=== PATIENT | male | born 1950 | race Caucasian/White ===

== ENCOUNTER 2017-11-19 23:35 | Inpatient (IN) | payer MEDICARE ==
[~2017-11-19] VITALS: Ht 182.9 cm; Wt 93.7 kg
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
[2017-11-19 23:44] VITALS: BP 169/108
[2017-11-20 00:45] LABS: HEMATOCRIT 38.4 % (42.0-52.0); HEMOGLOBIN 12.2 g/dl (14.0-18.0); MEAN CORPUSCULAR HGB 31.1 pg (27.0-31.0); MEAN CORPUSCULAR HGB CONC 31.8 g/dl (33.0-37.0); MEAN PLATELET VOLUME 8.9 fl (9.6-12.3); PLATELET COUNT AUTOMATED 302 10*3/uL (130-400); RED BLOOD COUNT 3.92 10*6/uL (4.50-5.90); RED CELL DISTRI WIDTH 18.6 % (0-14.5); WHITE BLOOD COUNT 8.6 10*3/uL (4.8-10.8)
[2017-11-20 01:04] LABS: ALBUMIN 3.2 gm/dl (3.1-4.5); ALKALINE PHOSPHATASE 135 U/L (45-117); BUN 11 mg/dl (7-24); CHLORIDE 102 mmol/L (98-107); CREATININE 1.12 mg/dL (0.70-1.30); LIPASE 110 U/L (73-393); POTASSIUM 3.3 mmol/L (3.5-5.1); SGOT/AST 118 IU/L (3-35); SGPT/ALT 143 U/L (12-78); SODIUM 135 mmol/L (136-145); TOTAL PROTEIN 8.3 gm/dL (6.4-8.2)
[2017-11-20 01:05] LABS: ACT PARTIAL THROMBO TIME 69.4 SECONDS (20.8-31.5)
[2017-11-20 01:05] LABS: BILIRUBIN NEGATIVE (NEGATIVE); BLOOD 1+ (NEGATIVE); CLARITY CLEAR (CLEAR); COLOR YELLOW (YELLOW); GLUCOSE NEGATIVE (NEGATIVE); KETONE NEGATIVE (NEGATIVE); LEUKO ESTERASE NEGATIVE (NEGATIVE); NITRITE NEGATIVE (NEGATIVE); PH 6.5 (5.0-9.0); SPECIFIC GRAVITY <= 1.005 (1.005-1.030); UROBILINOGEN 0.2 E.U./dl (0.2-1.0)
[2017-11-20 01:07] LABS: ETHYL ALCOHOL < 3.0 mg/dl (<3); TROPONIN I 0.167 ng/ml (<0.045)
[2017-11-20 01:12] LABS: INTERNATIONAL NORM RATIO > 11.7 (2.0-3.5)
[2017-11-20 01:15] LABS: ATYPICAL LYMPHS 3 % (0-0); PLATELET SUFFICIENCY NORMAL (NORMAL); TOTAL CELLS COUNTED 100 #CELLS
[2017-11-20 01:15] LABS: URINE AMPHETAMINES < 1000 (1000ng/ml); URINE BARBITURATES < 200 (200ng/ml); URINE BENZODIAZEPINES < 200 (200ng/ml); URINE CANNABINOIDS (THC) < 50 (50ng/ml); URINE COCAINE < 300 (300ng/ml); URINE METHADONE < 300 (300ng/ml); URINE OPIATES < 300 (300ng/ml)
[2017-11-20 01:16] LABS: URINE PHENCYCLIDINE < 25 (25ng/ml)
[2017-11-20 01:21] LABS: WBC 0-2 wbc/hpf (0-5)
[2017-11-20 02:46] VITALS: BP 170/102
[2017-11-20 03:05] VITALS: BP 157/82
[2017-11-20] MEDS ORDERED: COUMADIN6 M2 PO (03:25)
[2017-11-20 04:07] LABS: ABG BASE EXCESS -2.8 mmol/L (-2.0-2.0); ABG HCO3 20.9 mmol/l (22-26); ARTERIAL BLOOD GAS PCO2 33.6 mmHg (35-45); ARTERIAL BLOOD GAS PH 7.407 (7.35-7.45); ARTERIAL BLOOD GAS PO2 81.1 mmHg (80-90)
[2017-11-20] MEDS ORDERED: LIPITOR20 MG PO (04:08)
[2017-11-20] MEDS ORDERED: LASIX20 MG PO (04:08)
[2017-11-20] MEDS ORDERED: ZESTRIL10 MG PO (04:09)
[2017-11-20] MEDS ORDERED: LOPRESSOR50 M1 PO (04:09)
[2017-11-20 06:47] LABS: HEMATOCRIT 35.9 % (42.0-52.0); HEMOGLOBIN 11.8 g/dl (14.0-18.0); MEAN CORPUSCULAR HGB 31.9 pg (27.0-31.0); MEAN CORPUSCULAR HGB CONC 32.9 g/dl (33.0-37.0); MEAN PLATELET VOLUME 8.8 fl (9.6-12.3); PLATELET COUNT AUTOMATED 312 10*3/uL (130-400); RED CELL DISTRI WIDTH 18.4 % (0-14.5); WHITE BLOOD COUNT 7.4 10*3/uL (4.8-10.8)
[2017-11-20 07:25] LABS: ALBUMIN 2.9 gm/dl (3.1-4.5); ALKALINE PHOSPHATASE 128 U/L (45-117); BUN 9 mg/dl (7-24); CHLORIDE 105 mmol/L (98-107); CHOLESTEROL 118 mg/dL (<200); CREATININE 0.99 mg/dL (0.70-1.30); FREE T4 1.16 ng/dl (0.76-1.46); HDL CHOLESTEROL 30 mg/dl (40-60); LDL CHOLESTEROL 73 mg/dL (9-159); PHOSPHOROUS 2.7 mg/dL (2.5-4.9); POTASSIUM 3.3 mmol/L (3.5-5.1); SGOT/AST 111 IU/L (3-35); SGPT/ALT 133 U/L (12-78); SODIUM 137 mmol/L (136-145); TOTAL PROTEIN 8.1 gm/dL (6.4-8.2); TRIGLYCERIDES 77 mg/dl (<150); VLDL CHOLESTEROL 15 mg/dL (6-40)
[2017-11-20 07:26] LABS: ATYPICAL LYMPHS 2 % (0-0); BASOPHILS 3 % (0-1); PLATELET SUFFICIENCY NORMAL (NORMAL); TOTAL CELLS COUNTED 100 #CELLS
[2017-11-20 07:28] LABS: BURR CELLS FEW
[2017-11-20 07:30] LABS: THYROID STIM HORMONE (HS) 0.799 uIU/ml (0.358-4.75)
[2017-11-20 08:00] VITALS: BP 125/72
[2017-11-20 08:12] LABS: INTERNATIONAL NORM RATIO 8.8 (2.0-3.5)
[2017-11-20 08:38] LABS: VITAMIN D, 25-HYDROXY 38.7 ng/mL (30-100)
[2017-11-20 10:21] LABS: ABG BASE EXCESS -0.9 mmol/L (-2.0-2.0); ABG O2 SATURATION 97.4 % (95-97); ARTERIAL BLOOD GAS PCO2 36.7 mmHg (35-45); ARTERIAL BLOOD GAS PH 7.411 (7.35-7.45); ARTERIAL BLOOD GAS PO2 96.7 mmHg (80-90)
[2017-11-20 12:00] VITALS: BP 164/92
[2017-11-20] MEDS ORDERED: DUONEB 3 MG/3 ML3 M1 NEB (13:05)
[2017-11-20] MEDS ORDERED: ATORVASTATIN CA80 M1 PO (13:05)
[2017-11-20] MEDS ORDERED: CEFTRIAXON1 GM/50 ML IV (13:05)
[2017-11-20] MEDS ORDERED: Azithromycin500 MG IV (13:05)
[2017-11-20 16:00] VITALS: BP 105/85
[2017-11-20 20:00] VITALS: BP 145/77
[2017-11-21 06:10] LABS: HEPATITIS B SURFACE AG Negative (Negative); HEPATITIS C VIRUS ANTIBODY 0.2 s/co (0.0-0.9)
== END 2017-11-20 20:53 | disposition short-term general hospital (02) | DRG 871 ==
LOC: ED 23:35 → EDHOLD 11-20 02:18 → ICCU 11-20 02:43
PROVIDERS: Emergency Medicine Emergency Medical Services; Internal Medicine; Internal Medicine Critical Care Medicine; Student in an Organized Health Care Education/Training Program
PROC: 5A09357 Assistance with Respiratory Ventilation, Less than 24 Consecutive Hours, Continuous Positive Airway Pressure (ICD-10-PCS; principal; 2017-11-20)
DX: A41.9 Sepsis, unspecified organism (principal); G93.41 Metabolic encephalopathy; I11.0 Hypertensive heart disease with heart failure; J18.1 Lobar pneumonia, unspecified organism; I42.9 Cardiomyopathy, unspecified; I50.42 Chronic combined systolic (congestive) and diastolic (congestive) heart failure; E87.1 Hypo-osmolality and hyponatremia; J43.9 Emphysema, unspecified; F17.200 Nicotine dependence, unspecified, uncomplicated; Z96.649 Presence of unspecified artificial hip joint; E78.5 Hyperlipidemia, unspecified; D72.810 Lymphocytopenia; D53.9 Nutritional anemia, unspecified; E87.6 Hypokalemia; R73.9 Hyperglycemia, unspecified; R74.0 Nonspecific elevation of levels of transaminase and lactic acid dehydrogenase [LDH]; E66.3 Overweight; R59.1 Generalized enlarged lymph nodes; R31.9 Hematuria, unspecified; Z95.2 Presence of prosthetic heart valve; Z82.3 Family history of stroke; Z88.0 Allergy status to penicillin; Z82.49 Family history of ischemic heart disease and other diseases of the circulatory system; Z81.8 Family history of other mental and behavioral disorders; Z79.01 Long term (current) use of anticoagulants; Z68.28 Body mass index [BMI] 28.0-28.9, adult

== ENCOUNTER 2018-10-05 18:07 | Inpatient (IN) | payer MEDICARE ==
[~2018-10-05] VITALS: Ht 188 cm; Wt 75.7 kg
--- NOTE | ~2018-10-05 | WRIGHTHP ---
[place], [place] PATIENT HISTORY AND PHYSICAL EXAM NAME: JOHNNIE LONG UNIT #: [id number] ROOM: [facility] DOCTOR: ILIANA ENRIQUEZ MD BIRTHDATE: [birth year] DOS: HISTORY OF PRESENT ILLNESS: A 68 years old, who is not known to me. He arrived at the hospital yesterday evening around 1843. He was seen by Dr. Keita, was admitted to the hospital after midnight. I was told the patient has involuntary movements. The patient apparently woke up yesterday and was quite confused as per the patient's sister who he lives with and he was therefore transported to the Emergency Room. In the ER, he was noted to be confused, but the ER physician did not notice any involuntary movements. As per the sister, he also has had some couple of emesis. He denied having any chest pains, palpitations. After being admitted to the ICU, he was noted to have involuntary movements, was given Ativan and fell asleep and the movement stopped. He woke up around 5:00 with similar problems. At that time, he was seen to have myoclonic jerks, dystonic movements of the extremities. The Emergency Room physician did come up and see him, again another dose of Ativan was given. The ER physician also thought that there is a possibility of seizure disorder and the patient was given IV Dilantin. By the time I saw him, initially he was in deep sleep, was difficult to arouse him. His pupils were pinpoint and sluggishly reacting. After a few minutes, he woke up and he appeared to be extremely uncomfortable and had a scared look in his face. He would not answer any questions, kept saying that he was "naked" and he had involuntary dystonic jerky movements of upper arms as well as neck and his upper body. He was unable to answer any questions appropriately. PAST MEDICAL HISTORY: 1. Significant for recent hospitalization at [facility] for pelvic fractures. He was admitted last month and was transferred to local senior living, where he underwent physical therapy and was discharged from the senior living 2 days ago to his sister. 2. Severe cardiomyopathy, ejection fraction 20% with a recent cardiac catheterization and stent placement in 07/2018. 3. Benign hypertension. 4. History of valvular heart disease, unknown whether it is mechanical. 5. Chronic obstructive pulmonary disease. 6. Heavy alcohol abuse, quit drinking for about 18 years ago and in May, he restarted. 7. History of tobacco abuse. 8. Mixed hyperlipidemia. MEDICATIONS: Atorvastatin 80 daily, baclofen 10 daily, Coreg 6.25 twice a day, Flexeril 10 t.i.d., Lasix 40 daily, isosorbide 30 daily, losartan 100 mg daily, omeprazole 20 daily, spironolactone 25 daily, tramadol 50 q.i.d., warfarin 6 mg alternating with 5 mg. SOCIAL HISTORY: Again, heavy smoking, alcohol abuse. He lives with his sister. 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 [place], [place] PATIENT HISTORY AND PHYSICAL EXAM NAME: JOHNNIE LONG UNIT #: [id number] ROOM: [facility] DOCTOR: ILIANA ENRIQUEZ MD BIRTHDATE: [birth year] VITAL SIGNS: Blood pressure is 115/81, pulse of 84, respirations 18, temperature 97.8. LUNGS: Diminished breath sounds. No wheezes, rales or rhonchi heard. HEART: Regular. ABDOMEN: Soft. EXTREMITIES: Without any edema or evidence of severe peripheral vascular disease of both extremities with discoloration of the feet and lower part of the legs. LABORATORY DATA: Lactic acid is normal. EKG showed sinus rhythm. Ammonia was 20. Protime is 4.3. Comprehensive glucose 67, BUN 55 and creatinine 2.80. Electrolytes; sodium 130. CT of the head shows an extensive small vessel disease. Blood gas showed a pH of 7.3, pCO2 of 435, pO2 of 75, bicarbonate 18.8, oxygen saturation 94.4. Urinalysis; 1+ blood, 3+ bacteria. Urine drug screen shows opiates. Chest x-ray; chronic interstitial changes. CK is 167. Myoglobin was 222. ASSESSMENT AND PLAN: 1. The patient who presents with involuntary movements, most likely dystonia versus tardive dyskinesia. The patient will be transferred to [facility] for further workup since we do not have Neurology back up. CT of the head was unremarkable except for small vessel disease of the brain. 2. Chronic alcoholism with possible Wernicke's encephalopathy. Continue Haldol as well as p.r.n. Ativan. At present, there is no evidence of any seizure disorder. 3. Benign hypertension, controlled. 4. Adult failure to thrive. The patient was on Percocet, Ultram and cyclobenzaprine. It could be combination of medications, which could be causing some of his change in mental status. All these meds have been discontinued. 5. Cardiomyopathy with coronary artery disease and history of valvular heart disease. We will go ahead and continue his home medications, Coumadin will be on hold because his protime is high. ILIANA ENRIQUEZ MD CM:HISPHYS:PATIENT HISTORY AND PHYSICAL EXAMINATION 0848 [id number] ILIANA ENRIQUEZ MD 10/18/18 1029 interface
--- NOTE | ~2018-10-05 | EKG ---
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
[~2018-10-05 18:07] MED LIST: ATORVASTATIN CA80 M1 PO; Azithromycin500 MG IV; CEFTRIAXON1 GM/50 ML IV; COUMADIN6 M2 PO; DUONEB 3 MG/3 ML3 M1 NEB; LASIX20 MG PO; LIPITOR20 MG PO; LOPRESSOR50 M1 PO; ZESTRIL10 MG PO
[2018-10-05 18:12] VITALS: BP 98/56
--- NOTE | 2018-10-05 18:12 | NUR ---
PT REPORT TO ORTEGA BROWN, FOR CONTINUATION OF CARE.
[2018-10-05 18:28] VITALS: BP 97/59
[2018-10-05 18:42] LABS: BASO % 0.2 % (0.0-1.0); EOS % 0.3 % (1.0-4.0); HEMATOCRIT 32.8 % (42.0-52.0); LYMPH # 0.7 10*3/uL (1.3-4.4); LYMPH % 5.6 % (27.0-41.0); MEAN CELL VOLUME 101.5 fl (80.0-94.0); MEAN CORPUSCULAR HGB 34.1 pg (27.0-31.0); MEAN CORPUSCULAR HGB CONC 33.5 g/dl (33.0-37.0); MEAN PLATELET VOLUME 8.7 fl (9.6-12.3); MONO # 0.8 10*3/uL (0.1-1.0); MONO % 6.2 % (3.0-9.0); NEUT # 10.6 10*3/uL (2.3-7.9); NEUT % 86.8 % (47.0-73.0); PLATELET COUNT AUTOMATED 295 10*3/uL (130-400); RED BLOOD COUNT 3.23 10*6/uL (4.50-5.90); RED CELL DISTRI WIDTH 13.8 % (0-14.5); WHITE BLOOD COUNT 12.2 10*3/uL (4.8-10.8)
[2018-10-05 18:54] LABS: INTERNATIONAL NORM RATIO 4.3 (2.0-3.5)
[2018-10-05 19:01] LABS: ALBUMIN 3.4 gm/dl (3.1-4.5); ALKALINE PHOSPHATASE 176 U/L (45-117); BUN 55 mg/dl (7-24); CHLORIDE 96 mmol/L (98-107); POTASSIUM 4.5 mmol/L (3.5-5.1); SGOT/AST 26 IU/L (3-35); SGPT/ALT 38 U/L (12-78); SODIUM 130 mmol/L (136-145); TOTAL PROTEIN 7.8 gm/dL (6.4-8.2)
[2018-10-05 19:06] LABS: ETHYL ALCOHOL < 3.0 mg/dl (<3)
[2018-10-05 19:10] VITALS: BP 106/76
[2018-10-05 19:14] LABS: ABG HCO3 18.8 mmol/l (22-26); ABG O2 SATURATION 94.4 % (95-97); ARTERIAL BLOOD GAS PH 7.35 (7.35-7.45)
[2018-10-05 19:15] LABS: BILIRUBIN NEGATIVE (NEGATIVE); BLOOD 1+ (NEGATIVE); CLARITY SL CLOUDY (CLEAR); COLOR YELLOW (YELLOW); GLUCOSE NEGATIVE (NEGATIVE); KETONE NEGATIVE (NEGATIVE); LEUKO ESTERASE NEGATIVE (NEGATIVE); NITRITE NEGATIVE (NEGATIVE); PH 5.5 (5.0-9.0); UROBILINOGEN 0.2 E.U./dl (0.2-1.0)
--- NOTE | 2018-10-05 19:16 | NUR ---
NURSE TO NURSE REPORT GIVEN TO THIS NURSE.
[2018-10-05 19:18] LABS: ABG BASE EXCESS -5.6 mmol/L (-2.0-2.0)
[2018-10-05 19:24] LABS: BACTERIA 3+; EPITHELIAL CELLS 0-2; URINE AMPHETAMINES < 1000 (1000ng/ml); URINE BARBITURATES < 200 (200ng/ml); URINE BENZODIAZEPINES < 200 (200ng/ml); URINE CANNABINOIDS (THC) < 50 (50ng/ml); URINE COCAINE < 300 (300ng/ml); URINE METHADONE < 300 (300ng/ml); URINE OPIATES > 300 (300ng/ml)
[2018-10-05 19:25] LABS: HYALINE CAST 16-20
[2018-10-05 19:26] LABS: URINE PHENCYCLIDINE < 25 (25ng/ml)
[2018-10-05 19:58] VITALS: BP 122/73
--- NOTE | 2018-10-05 20:00 | NUR ---
PATIENT IN BED SLEEPING, FAMILY AT BEDSIDE.. VSS. RESP EASY AND NONLABORED. NO DISTRESS NOTED. RN WILL CONT TO MONITOR
[2018-10-05 20:19] VITALS: BP 104/63
--- NOTE | 2018-10-05 21:07 | NUR ---
PATIENT HAS BEEN TWITCHING SISTER STATES IT IS NORMAL AND HAS BEEN DOING IT FOR A COUPLE DAYS NOW.
--- NOTE | 2018-10-05 21:45 | NUR ---
PATIENT BROUGHT TO FLOOR FROM ER, MOVED TO BED, PATIENT HAS UNCONTROLLED MOVEMENTS ALL OVER BODY, EYE BULGING, PINPOINT PUPILS. PATIENTS CHEST MUSCLES TENSING UP, ROLLING INWARD. PATIENT LOOKS VERY FRIGHTENED, DOESNT KNOW WHERE HE IS, ASKING WHATS WRONG WITH ME. PATIENT DID YELL OUT IN PAIN WHENT MOVED FROM SIDE TO SIDE. WHEN I SPOKE WITH PATIENTS SISTER, SHE STATED THIS WAS NOT NORMAL FOR HIM. HE WASNT DOING THIS AT HOME. ASKED TO TAKE A QUICK LOOK, SINCE HE WAS INHOUSE AND I HAD TO CALL DR. ENRIQUEZ. HE LOOKED OVER PATIENT AND MEDS, VITALS STABLE. CONTACTED DR. ENRIQUEZ, NEW ORDER FOR 1MG ATIVAN NOW AND TO CALL BACK.
[2018-10-05 22:00] VITALS: BP 104/51
--- NOTE | 2018-10-05 22:00 | NUR ---
A 68, admitted to [facility], under the services of ILIANA Rogers MD with a diagnosis of ALTERED MENTAL STATUS. Chief complaint is CONFUSION, TOOK TOO MANY MEDS AND INVOLUNTARY MUSCLES. Patient arrived via stretcher from ER. Monitor applied. Initial assessment completed. Vital signs taken and recorded. ILIANA ROGERS MD notified of admission to the unit. Orders received. See assessment for past medical history, medications and allergies. Patient and/or family oriented to unit. [facility] visitation policy reviewed. Clothing/patient valuable form completed. HANNAH YUNG A
--- NOTE | 2018-10-05 22:06 | NUR ---
ATIVAN GIVEN AT 22:00, AT 22:06 PATIENTS UNCONTROLLED BODY MOVEMENTS HAD STOPPED, INFORMED DR. ENRIQUEZ, THAT PATIENT WAS NOW STABLE, AND RESTING. NEW ORDER TO CALL BACK IF IT SHOULD HAPPEN AGAIN.
[2018-10-06] VITALS: BP 90/57
[2018-10-06] MEDS ORDERED: ALDACTONE25 M1 PO (00:12)
[2018-10-06] MEDS ORDERED: COZAAR100 MG PO (00:12)
[2018-10-06] MEDS ORDERED: PRILOSEC20 M1 PO (00:12)
[2018-10-06] MEDS ORDERED: CYCLOBENZAPRINE10 MG PO (00:13)
[2018-10-06] MEDS ORDERED: IMDUR SA30 MG PO (00:13)
[2018-10-06] MEDS ORDERED: LASIX40 MG PO (00:13)
[2018-10-06] MEDS ORDERED: COREG6.25 MG PO (00:14)
[2018-10-06] MEDS ORDERED: LIPITOR80 MG PO (00:14)
[2018-10-06] MEDS ORDERED: BACLOFEN5 MG PO (00:14)
[2018-10-06] MEDS ORDERED: WARFARIN SOD5 MG PO (00:16)
[2018-10-06] MEDS ORDERED: COUMADIN6 M2 PO (00:16)
[2018-10-06] MEDS ORDERED: TRAMADOL HCL50 MG PO (00:17)
[2018-10-06] MEDS ORDERED: Percocet 325 MG1 TAB PO (00:18)
[2018-10-06 04:00] VITALS: BP 115/81
--- NOTE | 2018-10-06 04:50 | NUR ---
PATIENT AWOKE WITH THE UNCONTROLLED MOVEMENTS OF THE ENTIRE BODY, CONTACTED DR. SMITH TO SEE IF SHE COULD COME UP AND EXAMINE. SHE ARRIVED TO FLOOR AND NEW ORDERS RECEIVED FOR ATIVAN AND LABS. BLADDER SCAN AND INSERT VANCE IF >200.
--- NOTE | 2018-10-06 04:52 | NUR ---
ATIVAN GIVEN, EFFECTIVE ALMOST IMMEDIATELY. FOR A SHORT TIME, PATIENT BEGAN TO MOVE ABOUT AGAIN, EYES UNFOCUSED. PATIENT UNABLE TO ANSWER QUESTIONS. ABG'S DRAWN, AND LABS. BLADDER SCANNED FOR >800, VANCE INSERTED.
--- NOTE | 2018-10-06 05:00 | NUR ---
CONTACTED DR. ENRIQUEZ TO REVIEW ORDER FROM SARAH, SHE OKAYED THEM. AND ADDED MORE LABS AND ROCEPHIN. PATIENT MORE RELAXED AT THIS TIME. "MUSCLE SPASMS" HAVE SINCE SUBSIDED. NO DISTRESS NOTED.
[2018-10-06 05:39] LABS: ABG BASE EXCESS -4.3 mmol/L (-2.0-2.0); ABG HCO3 19.6 mmol/l (22-26); ARTERIAL BLOOD GAS PCO2 32.9 mmHg (35-45); ARTERIAL BLOOD GAS PH 7.39 (7.35-7.45)
[2018-10-06 06:03] LABS: ALBUMIN 2.9 gm/dl (3.1-4.5); BASO % 0.3 % (0.0-1.0); CREATININE 2.05 mg/dL (0.70-1.30); EOS # 0.1 10*3/uL (0.0-0.4); HEMATOCRIT 31.3 % (42.0-52.0); HEMOGLOBIN 10.6 g/dl (14.0-18.0); LYMPH % 12.6 % (27.0-41.0); MEAN CELL VOLUME 100.6 fl (80.0-94.0); MEAN CORPUSCULAR HGB 34.1 pg (27.0-31.0); MEAN CORPUSCULAR HGB CONC 33.9 g/dl (33.0-37.0); MEAN PLATELET VOLUME 8.8 fl (9.6-12.3); MONO # 0.6 10*3/uL (0.1-1.0); MONO % 7.4 % (3.0-9.0); NEUT # 6.1 10*3/uL (2.3-7.9); NEUT % 78.4 % (47.0-73.0); PLATELET COUNT AUTOMATED 295 10*3/uL (130-400); POTASSIUM 4.2 mmol/L (3.5-5.1); RED BLOOD COUNT 3.11 10*6/uL (4.50-5.90); TOTAL PROTEIN 6.9 gm/dL (6.4-8.2); WHITE BLOOD COUNT 7.8 10*3/uL (4.8-10.8)
--- NOTE | 2018-10-06 08:31 | NUR ---
PT AWAKE AND ALERT BUT HAVING CONSTANT INVOLUNTARY MUSCLE MOVEMENTS. WILL NOT FOCUS WITH HIS EYES. NOT ANSWERING QUESTIONS APPROPRIATLY BUT KEEPS STATING "IM NAKED". EXPLAINED TO PT HE IS CLOTHED BUT PT WILL NOT FOCUS ON ME AND JUST STATES "IM NAKED". DR ENRIQUEZ IN TO SEE PT AT THIS TIME.
--- NOTE | 2018-10-06 08:33 | NUR ---
PT UNABLE TO HAVE MRI DONE DUE TO HIS SISTER STATING THAT HE HAS A METAL VALVE BUT IS UNABLE TO TELL US WHAT KIND AND STATES IT WAS DONE AT [facility] (WHICH IS NOW CLOSED) [address] ENRIQUEZ AWARE AND REPEAT CT SCAN WAS GOING TO BE ORDER BUT PT'S SISTER JUNI STATES THAT IF HE NEEDS MORE TESTING DONE SHE WANTS HIM TRANSFERED TO [facility] BECAUSE THAT IS WHERE HIS DR'S ARE.
--- NOTE | 2018-10-06 09:00 | NUR ---
Director Food Safety in to see patient. He is waiting for transfer to [facility].
--- NOTE | 2018-10-06 09:06 | NUR ---
Unable to view patient skin intergrity issue at this time since patient is being transfered due to his medical condition.
--- NOTE | 2018-10-06 10:24 | NUR ---
DR ENRIQUEZ MADE AWARE OF POSITIVE BLOOD CULTURE RESULTS. NEW ORDER FOR VANCOMYCIN RECIEVED.
--- NOTE | 2018-10-06 11:46 | NUR ---
PT CONTINUES TO HAVE CONSTANT INVOLUNTARY MOVEMENTS BUT PT DID ANSWER A FEW QUESTIONS FOR ME JAVI. HE DID [facility] WHEN I ASKED IF HE KNEW WHERE HE WAS AND TRYING TO MAKE EYE CONTACT WITH ME WHEN I ASK HIM QUESTIONS.
[2018-10-06 12:00] VITALS: BP 117/70
--- NOTE | 2018-10-06 15:11 | NUR ---
REPORT GIVEN TO GILMAR AT [facility] AT [phone]. PT BEING TRANSFERED TO [id number].
--- NOTE | 2018-10-06 15:12 | NUR ---
I SPOKE TO PT'S SISTER JUNI AND UPDATED ON PT'S ROOM NUMBER AT [facility] AND HE WILL BE LEAVING BY [facility] IN APPROX 45 MIN.
[2018-10-06 15:45] VITALS: BP 143/83
--- NOTE | 2018-10-06 16:18 | NUR ---
[facility] HERE TO TRANSPORT PT TO [facility].
== END 2018-10-06 16:18 | disposition short-term general hospital (02) | DRG 918 ==
LOC: ED 18:07 → EDHOLD 20:23 → ICCU 20:23
PROVIDERS: Emergency Medicine; Emergency Medicine Emergency Medical Services; ADMIT Internal Medicine
DX: T39.91XA Poisoning by unspecified nonopioid analgesic, antipyretic and antirheumatic, accidental (unintentional), initial encounter (principal); I42.9 Cardiomyopathy, unspecified; D68.9 Coagulation defect, unspecified; E51.2 Wernicke's encephalopathy; R62.7 Adult failure to thrive; I10 Essential (primary) hypertension; G24.9 Dystonia, unspecified; G24.01 Drug induced subacute dyskinesia; E78.2 Mixed hyperlipidemia; F10.20 Alcohol dependence, uncomplicated; Y90.9 Presence of alcohol in blood, level not specified; J44.9 Chronic obstructive pulmonary disease, unspecified; I50.9 Heart failure, unspecified; Z88.0 Allergy status to penicillin; Z79.899 Other long term (current) drug therapy; Z82.49 Family history of ischemic heart disease and other diseases of the circulatory system; Z82.0 Family history of epilepsy and other diseases of the nervous system; Y92.89 Other specified places as the place of occurrence of the external cause; Z87.891 Personal history of nicotine dependence